=== PATIENT | male | born 1950 | race Caucasian/White ===

== ENCOUNTER → 2020-10-04 | Outpatient (CLI) | payer OTHER ==
--- NOTE | 2020-10-04 17:06 | MR ---
EXAMINATION TYPE: MR cervical spine wo con DATE OF EXAM: 10/04/2020 COMPARISON: None HISTORY: Numbness in hands TECHNIQUE: Multiplanar, multisequence images of the cervical spine were acquired. C2-C3: Minimal posterior disc bulge is present. No significant foraminal encroachment or spinal steno sis. C3-C4: Minimal posterior disc bulge is present. No significant spinal stenosis. Uncovertebral joint h ypertrophy is present causing some mild left-sided foraminal encroachment. C4-C5: No significant foraminal encroachment. No disc herniation. No spinal stenosis. C5-C6: Posterior extension endplate disc complex causes anterior mass effect on the thecal sac, mild spinal stenosis. Uncovertebral joint hypertrophy results in bilateral foraminal encroachment. C6-C7: Minimal posterior disc bulge is present. No significant spinal stenosis or foraminal encroachm ent C7-T1: No evidence for degenerative disc disease. No disc bulge/herniation or protrusion. No Canal stenosis. Foramina are patent bilaterally. Cervical segments are intact. There is normal alignment. Cervical spinal cord is of normal signal. Craniovertebral junction relationships are within normal limits. Cervical vertebral bodies show pre served height. Minimal anterolisthesis grade 1 C4-5, retrolisthesis grade 1 C5-C6. Loss of disc heigh t signal is greatest at C5-6. Cervical cord signal is maintained. IMPRESSION: Degenerative disc disease, multilevel foraminal encroachment as described.
--- NOTE | 2020-10-05 00:23 | MR ---
EXAMINATION TYPE: MR brachial plexus LT wo/w con DATE OF EXAM: 10/04/2020 COMPARISON: HISTORY: Numbness/tingling in arms and hands CONTRAST: Standard multiplanar, multisequence MRI departmental protocol utilizing 8.5 mL intravenous Gadavist g adolinium contrast. The cervical vertebra have overall fairly normal spacing and alignment for the patient's age. There i s no compression fracture. Cervical spinal cord has normal signal pattern without evidence of edema. The cervical neural foramina are fairly well-maintained. There is a C5-6 small posterior cervical dis c herniation. There is minimal anterior subluxation of C4 in relation to C5. There is no significant cervical spinal stenosis. Spinal canal measures at least 8 mm. There is no paraspinal mass. Specifica lly there is no evidence of left side brachial plexus mass. The contrast images show no pathologic en hancement. There is moderate arthritic change in the left shoulder joint with shoulder joint effusion. IMPRESSION: Mild spondylotic changes in the cervical spine with small posterior disc herniation at C5-6. No signi ficant spinal stenosis. No evidence of brachial plexus mass. 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
== END | disposition home or self-care (01) ==
LOC: RADMRIMAIN 14:17
PROVIDERS: ATTEND Family Medicine
DX: M19.012 Primary osteoarthritis, left shoulder (principal); M50.30 Other cervical disc degeneration, unspecified cervical region; R20.0 Anesthesia of skin
CPT/HCPCS: 72141; 71552; A9585

== ENCOUNTER → 2020-10-05 | Outpatient (CLI) | payer OTHER ==
--- NOTE | 2020-10-06 03:30 | MR ---
EXAMINATION TYPE: MR brachial plexus RT wo/w con DATE OF EXAM: 10/05/2020 COMPARISON: HISTORY: Weakness, numbness and tingling of BUE CONTRAST: Standard multiplanar, multisequence MRI departmental protocol utilizing 8.5 mL intravenous Gadavist g adolinium contrast. There is some narrowing of the disc spaces at C5-6 and C6-7. There is small posterior disc herniation at C5-6. Spinal canal measures 7 mm. Cervical spinal cord shows no evidence of edema. There is no evidence of a paraspinal mass. The right side brachial plexus shows no discrete mass. The re is 1.5 cm degenerative cyst in the greater tuberosity of the humerus. There is moderate spurring a t the AC joint. There is severe subacromial joint space narrowing and impingement. There is retractio n of the supraspinatus tendon. There is large degenerative cyst in the anterior glenoid of the scapul a. I see no evidence of cervical paraspinal mass. There are multiple rounded low signal areas around the right shoulder that could be calcium deposits. The contrast images show no pathologic enhancement . IMPRESSION: No demonstrated abnormality of the right side brachial plexus. Advanced arthritic disease in the right shoulder joint with large rotator cuff tear and obliteration of the subacromial joint space. Spondylotic mild changes in the cervical spine. There is a minimal 7 mm relative narrowing of the spi nal canal at C5-6. No evidence of cord edema.
== END ==
LOC: RADMRIMAIN 15:42
PROVIDERS: ATTEND Family Medicine
DX: M19.011 Primary osteoarthritis, right shoulder (principal); M75.101 Unspecified rotator cuff tear or rupture of right shoulder, not specified as traumatic
CPT/HCPCS: 71552; A9585

== ENCOUNTER → 2022-02-02 | Outpatient (CLI) | payer MEDICARE ==
--- NOTE | 2022-02-02 15:26 | NM ---
EXAMINATION TYPE: NM bone 3 phase DATE OF EXAM: 02/02/2022 COMPARISON: Plain films 01/26/2022 HISTORY: E08.622 Triple phase bone scintigraphy was performed following the injection of 24.8 mCi Tc 99m MDP. Immedia te images and 3.5 hours post injection images acquired. FINDINGS: Blood flow: There is increased radiotracer to the right ankle compared to the left of the blood flow images. Blood pool: Mild increased uptake is at the lateral malleolus and at the medial compartment joint spa ce. Static images: There is increased radiotracer accumulation at the medial aspect right ankle. Diffuse increased uptake is along the lateral right ankle. IMPRESSION: 1. Uptake at the right ankle on all 3 phases of bone scan. Some underlying osteomyelitis could be con sidered. Blood pool however appears more superficial suggesting cellulitis with underlying postsurgic al change within the fibula.
== END | disposition home or self-care (01) ==
LOC: RADNMMAIN 07:29
PROVIDERS: ATTEND Thoracic Surgery (Cardiothoracic Vascular Surgery)
DX: M86.9 Osteomyelitis, unspecified (principal); E08.622 Diabetes mellitus due to underlying condition with other skin ulcer; L98.499 Non-pressure chronic ulcer of skin of other sites with unspecified severity
CPT/HCPCS: 78315; A9503

== ENCOUNTER 2022-08-02 06:57 | Day surgery (SDC) | payer MEDICARE, OTHER ==
[~2022-08-02 06:57] MED LIST: LACTATED RINGERS 1,000 ML IV SCH
[2022-08-02 07:21] VITALS: TEMP 97.1
[2022-08-02 07:29] LABS: Glucose,Whole Blood 94 mg/dL (70-110)
[2022-08-02] MEDS ORDERED: LACTATED RINGERS 1,000 ML IV ONE (07:30)
[2022-08-02] MEDS ORDERED: LIDOCAINE 2% INJ 20 MG/ML (2 ML VIAL) ONE (08:05)
[2022-08-02] MEDS ORDERED: PROPOFOL 10 MG/ML 20 ML VIAL IV ONE (08:05)
--- NOTE | 2022-08-02 08:42 | P.PCN ---
Date of Procedure: 08/02/22 Procedure(s) Performed: Brief history: Patient is a pleasant 72-year-old white male scheduled for an elective upper endoscopy as well as colonoscopy as a part of evaluation of iron deficiency anemia. Procedure performed: Esophagogastroduodenoscopy with biopsy Colonoscopy with snare polypectomy Preoperative diagnosis: GERD/ Iron deficiency anemia and Anesthesia: MAC Procedure: After informed consent was obtained from the patient was brought into the endoscopy unit and IV sedation was administered by anesthesia under continuous monitoring. Initially upper endoscopy was done. The Olympus GF 160 video endoscope was inserted inserted into the mouth and esophagus intubated without any difficulty and was gradually advanced into the stomach and duodenum and carefully examined. The bulb part of the duodenum had a 1 cm flat duodenal polyp which was biopsied and second part of the duodenum appeared normal. The scope was then withdrawn into the stomach adequately insufflated with air and upon careful examination the antrum had mild gastritis and biopsies were done from this area. The body, cardia and fundus appeared normal. The scope was then withdrawn into the esophagus. The GE junction was located at 40 cm to the incisors. Small hiatal hernia noted. There was long segment of Vera's esophagus extending from 38-40 cm from the incisors and multiple biopsies were done from this area. . Rest of the esophagus appeared normal. Patient tolerated the procedure well. At this time the patient continued to remain sedation. Initial digital rectal examination was normal. Olympus CF 160 video colonoscope was then inserted into the rectum and gradually advanced to the cecum without any difficulty. Careful examination was performed as the scope was gradually being withdrawn. The prep was excellent. The cecum to 1.5 cm broad-based polyp removed by snare polypectomy. Rest of the, ascending colon, transverse colon, descending colon, sigmoid colon and rectum appeared normal. Retroflexion was performed in the rectum and no lesions were noted. Patient tolerated the procedure well. Impression: 1.Upper endoscopy revealed small hiatal hernia, long segment Vera's esophagus and duodenal polyp 2.Colonoscopy revealed 1.5 cm broad-based cecal polyp status post snare polypectomy Recommendations: Findings of this examination were discussed with the patient as well as his family. He was advised to follow with the biopsy results. If the biopsies confirm the presence of Vera's esophagus he can have a repeat upper endoscopy in 3 years. Recommend repeat colonoscopy in 3 years from now because of colon polyps.
[2022-08-02 09:07] VITALS: BP 159/64; PULSE 65; RESP 16
== END 2022-08-02 09:34 | disposition home or self-care (01) ==
LOC: ORWHC2ENDO 06:57
PROVIDERS: ATTEND Internal Medicine Gastroenterology
DX: D12.0 Benign neoplasm of cecum (principal); K31.7 Polyp of stomach and duodenum; K44.9 Diaphragmatic hernia without obstruction or gangrene; K31.89 Other diseases of stomach and duodenum; K31.A19 Gastric intestinal metaplasia without dysplasia, unspecified site; K29.70 Gastritis, unspecified, without bleeding; Z79.899 Other long term (current) drug therapy
CPT/HCPCS: 88305; 45385; 43239; J2704; J2001

== ENCOUNTER → 2023-02-08 | Outpatient (CLI) | payer MEDICARE ==
--- NOTE | 2023-02-09 12:09 | NM ---
EXAMINATION TYPE: NM DatScan Brain SPECT DATE OF EXAM: 02/08/2023 COMPARISON: NONE CLINICAL INDICATION: Male, 73 years old with history of G25.0; TECHNIQUE: 10 drops of Lugol's solution was administered 1 hour prior to injection as a thyroid bloc sangita agent. After the administration of 4.48 mCi I-123 Ioflupane DaTscan. Images obtained 3 hours p ost injection. SPECT images of the brain were acquired with axial and coronal reconstructions. FINDINGS: There is slight increase in background activity. In addition, there is weak comma-shaped appearance t o the bilateral corpus striata. IMPRESSION: Possible early changes reflecting Parkinson's disease or a Parkinsonian syndrome. Consider follow-up to assess for any progression.
== END | disposition home or self-care (01) ==
LOC: RADNMMAIN 10:50
PROVIDERS: ATTEND Psychiatry & Neurology Neurology
DX: G25.0 Essential tremor (principal)
CPT/HCPCS: 78803; A9584

== ENCOUNTER → 2023-06-23 | Outpatient (CLI) | payer MEDICARE ==
--- NOTE | 2023-06-23 13:35 | CT ---
EXAMINATION TYPE: CT brain wo con CT DLP: 1081.60 mGycm, Automated exposure control for dose reduction was used. DATE OF EXAM: 06/23/2023 1:06 PM COMPARISON: None. 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 Coronal and sagittal reformats reviewed. FINDINGS: Brain: Extra-axial spaces: Right frontal convexity subdural hematoma. Left cerebral convexity subdural hemat kamla. Both demonstrate hyperdense components. The right measures up to 6 mm in thickness. The left drake sures up to 1 cm thickness. Ventricular system: Right parietal approach MICROFILM PROCESSOR shunt catheter identified with distal tip terminating in the body of the left lateral ventricle. No hydrocephalus. No intraventricular hemorrhage identifie d. Cerebral parenchyma: Cerebral atrophy. No acute intraparenchymal hemorrhage. Encephalomalacia along t he MICROFILM PROCESSOR shunt course. The gilman-white junction is well differentiated. Scattered hypoattenuating areas a re seen within the white matter. Cerebellum: Unremarkable. Mass effect: No evidence of midline shift. Intracranial vasculature: Atherosclerotic calcifications of the intracranial vessels. Soft tissues: Normal. Calvarium/osseous structures: No depressed skull fracture. Postsurgical changes from right parietal a pproach MICROFILM PROCESSOR shunt catheter. Paranasal sinuses and mastoid air cells: Mild mucosal thickening along the medial aspect of the left maxillary wall. The remaining paranasal sinuses are clear. The mastoid air cells are clear. Visualized orbits: Bilateral aphakia. Bilateral scleral calcifications. IMPRESSION: 1. Acute/subacute bilateral subdural hematomas. No midline shift. 2. Right parietal approach MICROFILM PROCESSOR shunt catheter without hydrocephalus. Findings called to and discussed with Chantal Cabrales at 1:32 PM on 06/23/2023.
== END | disposition home or self-care (01) ==
LOC: RADCTMAIN 12:49
PROVIDERS: ATTEND Psychiatry & Neurology Neurology
DX: I62.00 Nontraumatic subdural hemorrhage, unspecified (principal); G91.2 (Idiopathic) normal pressure hydrocephalus; Z98.2 Presence of cerebrospinal fluid drainage device
CPT/HCPCS: 70450

== ENCOUNTER 2023-06-26 11:40 | Emergency (ER) | payer MEDICARE ==
--- NOTE | 2023-06-26 12:00 | ED ---
General Adult HPI - General Chief complaint: Recheck/Abnormal Lab/Rx Stated complaint: Brain Bleed Time Seen by Provider: 06/26/23 11:50 Source: patient Mode of arrival: ambulatory Limitations: no limitations - History of Present Illness Initial comments: Dictation was produced using [employer] dictation software. please excuse any grammatical, word or spelling errors. Chief Complaint: 73-year-old male presents to emergency department for abnormal outpatient CT History of Present Illness: 43-year-old male he was seen at neurologist office approximately one week ago. A routine computed tomography scan of the brain was ordered due to patient not having had a computed tomography scan of his brain in quite some time. He was at Dr. Dudley's office saw a mid-level provider loose. Getting his care. Patient's history of PARTITION NOTCHER shunt for hydrocephalus. That shunt was placed 2 years ago at [facility]. Patient has history of frequent falls. at the bedside states that he fell 10 days ago. Didn't think much of it. They saw the neurologist 1 week ago for routine visit which is when the computed tomography scan was ordered non-emergently or urgently. Scan was performed of last week. On Monday there was a voice message stating that patient should go to the ER for a brain bleed. He got the message today and decided to come to the ER today. Patient states that overall he is feeling better. States that he fell 10 days ago he is walking around the dark when he lost his footing and fell forward and struck the left forehead. The ROS documented in this emergency department record has been reviewed and confirmed by me. Those systems with pertinent positive or negative responses have been documented in the HPI. All other systems are other negative and/or noncontributory. - Related Data Home Medications Medication Instructions Recorded Confirmed ARIPiprazole [Abilify] 2.5 mg PO DAILY 07/29/22 08/02/22 DULoxetine HCL [Cymbalta] 60 mg PO DAILY 07/29/22 08/02/22 Ensure 1 can PO BID-W/MEALS 07/29/22 08/02/22 HYDROcodone/APAP 7.5-325MG [[place] 1 tab PO Q6HR PRN 07/29/22 08/02/22 7.5-325] Multi Vitamin With Fe 1 tab PO DAILY 07/29/22 08/02/22 Pantoprazole [Protonix] 40 mg PO DAILY 07/29/22 08/02/22 Sennosides [Senokot] 8.6 mg PO DAILY 07/29/22 08/02/22 buPROPion HCL [Wellbutrin SR] 200 mg PO BID 07/29/22 08/02/22 traZODone HCL 100 mg PO HS 07/29/22 08/02/22 Allergies Allergy/AdvReac Type Severity Reaction Status Date / Time No Known Allergies Allergy Verified 06/26/23 11:46 Review of Systems ROS Statement: Those systems with pertinent positive or pertinent negative responses have been documented in the HPI. ROS Other: All systems not noted in ROS Statement are negative. Past Medical History Past Medical History: GERD/Reflux Additional Past Medical History / Comment(s): arhtritis, open wound to rt ankle being tx at wound care. hgb dropped in the last 5 months received 1 prbc History of Any Multi-Drug Resistant Organisms: None Reported Additional Past Surgical History / Comment(s): colonoscopy, brainshunt put in for normal pressure hydrocephalus. Past Anesthesia/Blood Transfusion Reactions: No Reported Reaction Additional Past Anesthesia/Blood Transfusion Reaction / Comment(s): blood transfusions no reactions Past Psychological History: PTSD Smoking Status: Light tobacco smoker Past Alcohol Use History: Daily Past Drug Use History: None Reported - Past Family History Mother Family Medical History: Cancer Additional Family Medical History / Comment(s): colon cancer Father History Unknown: Yes General Exam - General Exam Comments Initial Comments: PHYSICAL EXAM: General Impression: Alert and oriented x3, not in acute distress HEENT: Normocephalic atraumatic, extra-ocular movements intact, pupils equal and reactive to light bilaterally, mucous membranes moist. Cardiovascular: Heart regular rate and rhythm Chest: Able to complete full sentences, no retractions, no tachypnea Abdomen: abdomen soft, non-tender, non-distended, no organomegaly Musculoskeletal: Pulses present and equal in all extremities, no peripheral edema Motor: no focal deficits noted Neurological: CN II-XII grossly intact, no focal motor or sensory deficits noted Skin: Intact with no visualized rashes Psych: Normal affect and mood Limitations: no limitations Course Vital Signs 06/26/23 06/26/23 11:44 11:51 Temperature 97.5 F L 98.3 F Pulse Rate 104 H 94 Respiratory 18 20 Rate Blood Pressure 134/71 144/72 O2 Sat by Pulse 97 98 Oximetry EKG Findings - EKG Comments: EKG Findings:: My EKG interpretation: Ventricular rate 91, sinus rhythm,. Interval to 26, QRS 106, QTC 433. No LA prolongation, no QTC prolongation, no ST or T-wave changes noted. No old EKG for comparison. Overall, this EKG is nonspecific Medical Decision Making - Medical Decision Making Was pt. sent in by a medical professional or institution (, PA, DIRECTOR FOOD AND BEVERAGE, urgent care, hospital, or long-term...) When possible be specific @ -No Did you speak to anyone other than the patient for history (EMS, parent, family, police, friend...)? What history was obtained from this source @ -No Did you review nursing and triage notes (agree or disagree)? Why? @ -I reviewed and agree with nursing and triage notes Were old charts reviewed (outside hosp., previous admission, EMS record, old EKG, old radiological studies, urgent care reports/EKG's, long-term records)? Report findings @ -Last week CT was reviewed showing bilateral subdural bleed Differential Diagnosis (chest pain, altered mental status, abdominal pain women, abdominal pain men, vaginal bleeding, musculoskeletal, weakness, fever, dyspnea, syncope, headache, dizziness, GI bleed, back pain, seizure, CVA, palpatations, mental health)? @ -Differential Headache: Migraine, tension, cluster, carbon monoxide, central venous thrombosis, pension karma temporal arteritis, acute closure glaucoma, intercranial hemorrhage, mastoiditis, sinusitis, head injury, this is not meant to be an all-inclusive list. EKG interpreted by me (3pts min.). @ -None done X-rays interpreted by me (1pt min.). @ -None done CT interpreted by me (1pt min.). @ -Computed tomography scan was ordered today showing redemonstration of bilateral subdural hematoma with no significant changes U/S interpreted by me (1pt. min.). @ -None done What testing was considered but not performed or refused? (CT, X-rays, U/S, labs)? Why? @ -None What meds were considered but not given or refused? Why? @ -None Did you discuss the management of the patient with other professionals (professionals i.e. , PA, [employer], lab, RT, psych nurse, social professionals, associate professor of geology, teacher, security flex officer, home health care case manager)? Give summary @ -case discussed with Dr. Oconnell, ear physician at [facility] were patient had his PARTITION NOTCHER shunt placed he is agreeable with urinary ER transfer Was smoking cessation discussed for >3mins.? @ -No Was critical care preformed (if so, how long)? @ -Yes, 33 minutes Were there social determinants of health that impacted care today? How? (Homelessness, low income, unemployed, alcoholism, drug addiction, transportation, low edu. Level, literacy, decrease access to med. care, long term, rehab)? @ -No Was there de-escalation of care discussed even if they declined (Discuss DNR or withdrawal of care, Hospice)? DNR status @ -No What co-morbidities impacted this encounter? (DM, HTN, Smoking, COPD, CAD, Canc er, CVA, ARF, Chemo, Hep., AIDS, mental health diagnosis, sleep apnea, morbid obesity)? @ -None Was patient admitted / discharged? Hospital course, mention meds given and route, prescriptions, significant lab abnormalities, going to OR and other pertinent info. @ -73-year-old male presents to the ER after having had a brain bleed seen on CT imaging from last week. This was seen on a routine CT brain tests ordered by neurologist. Vital signs stable. Physical examination is benign. Patient is well-appearing. Repeat computed tomography scan shows stable findings. we do not have neurosurgery at our facility. This is not urgent still needs to be evaluated by neurosurgery team. Patient is agreeable with plan. Patient will be transferred to [facility] Undiagnosed new problem with uncertain prognosis? @ -No Drug Therapy requiring intensive monitoring for toxicity (Heparin, Nitro, Insulin, Cardizem)? @ -No Were any procedures done? @ -No Diagnosis/symptom? Acute, or Chronic, or Acute on Chronic? Uncomplicated (without systemic symptoms) or Complicated (systemic symptoms)? @ -Subdural hematoma bilaterally Side effects of treatment? @ -No Exacerbation, Progression, or Severe Exacerbation? @ -No Poses a threat to life or bodily function? How? (Chest pain, [place], [place], pneumonia, PE, COPD, DKA, ARF, appy, cholecystitis, CVA, Diverticulitis, Homicidal, Suicidal, threat to staff... and all critical care pts) @ -yes - Lab Data Result diagrams: 06/26/23 11:56 06/26/23 11:56 Lab Results 06/26/23 06/26/23 Range/Units 11:56 11:56 WBC 6.2 (3.8-10.6) k/uL RBC 4.24 L (4.30-5.90) m/uL Hgb 13.1 (13.0-17.5) gm/dL Hct 40.2 (39.0-53.0) % MCV 94.8 (80.0-100.0) fL MCH 31.0 (25.0-35.0) pg MCHC 32.7 (31.0-37.0) g/dL RDW 12.3 (11.5-15.5) % Plt Count 207 (150-450) k/uL MPV 7.5 Neutrophils % 62 % Lymphocytes % 28 % Monocytes % 7 % Eosinophils % 2 % Basophils % 0 % Neutrophils # 3.8 (1.3-7.7) k/uL Lymphocytes # 1.7 (1.0-4.8) k/uL Monocytes # 0.4 (0-1.0) k/uL Eosinophils # 0.1 (0-0.7) k/uL Basophils # 0.0 (0-0.2) k/uL Sodium 139 (137-145) mmol/L Potassium 4.1 (3.5-5.1) mmol/L Chloride 104 (98-107) mmol/L Carbon Dioxide 23 (22-30) mmol/L Anion Gap 12 mmol/L BUN 16 (9-20) mg/dL Creatinine 0.69 (0.66-1.25) mg/dL Est GFR (CKD-EPI)AfAm >90 (>60 ml/min/1.73 sqM) Est GFR (CKD-EPI)NonAf >90 (>60 ml/min/1.73 sqM) Glucose 101 H (74-99) mg/dL Calcium 9.5 (8.4-10.2) mg/dL Disposition Clinical Impression: Subdural hemorrhage Disposition: OTHER INSTITUTION NOT DEFINED Condition: Fair Referrals: Lenny Barnes MD [Primary Care Provider] - 1-2 days Time of Disposition: 12:26 - Out of Hospital Transfer - Req. Specs Out of Hospital Transfer - Requested Specifics: Other Emergency Center ([facility]
[2023-06-26 12:05] VITALS: TEMP 98.3
[2023-06-26 12:10] LABS: Basophils % (A) 0 %; Eosinophils # (A) 0.1 k/uL (0-0.7); Eosinophils % (A) 2 %; HCT 40.2 % (39.0-53.0); HGB 13.1 gm/dL (13.0-17.5); Lymphocytes # (A) 1.7 k/uL (1.0-4.8); Lymphocytes % (A) 28 %; MCHC 32.7 g/dL (31.0-37.0); MCV 94.8 fL (80.0-100.0); Mean Platelet Volume 7.5; Monocytes # (A) 0.4 k/uL (0-1.0); Monocytes % (A) 7 %; Neutrophils # (A) 3.8 k/uL (1.3-7.7); Neutrophils % (A) 62 %; Platelet Count 207 k/uL (150-450); RBC 4.24 m/uL (4.30-5.90); RDW 12.3 % (11.5-15.5); WBC 6.2 k/uL (3.8-10.6)
[2023-06-26 12:23] LABS: African American GFR (CKD) >90 (>60 ml/min/1.73 sqM); Anion Gap 12 mmol/L; Blood Urea Nitrogen 16 mg/dL (9-20); Calcium 9.5 mg/dL (8.4-10.2); Carbon Dioxide 23 mmol/L (22-30); Chloride 104 mmol/L (98-107); Glucose 101 mg/dL (74-99); Non-African American GFR(CKD) >90 (>60 ml/min/1.73 sqM); Potassium 4.1 mmol/L (3.5-5.1); Sodium 139 mmol/L (137-145)
--- NOTE | 2023-06-26 12:26 | CT ---
EXAMINATION TYPE: CT brain cspine wo con CT DLP: 1347.5 mGycm, Automated exposure control for dose reduction was used. DATE OF EXAM: 06/26/2023 12:16 PM COMPARISON: CT brain 06/23/2023. CLINICAL INDICATION:Male, 73 years old with history of fall 10 days ago; recent falls. prior on pacs 06.23.23 TECHNIQUE: Brain: Multiple axial CT images of the brain were obtained without IV contrast. Cspine: Axial CT images from the skull base to the inferior aspect of T2 we obtained without intraven ous contrast. Coronal and sagittal reformatted images were also reviewed. FINDINGS: Brain: Extra-axial spaces: Right frontal convexity subdural hematoma. Left cerebral convexity subdural hemat kamla. Both demonstrate hyperdense components. The right measures up to 7 mm in thickness. The left drake sures up to 1.1 cm thickness. Ventricular system: Right parietal approach [employer] shunt catheter identified with distal tip terminating in the body of the left lateral ventricle. No hydrocephalus. No intraventricular hemorrhage identifie d. Cerebral parenchyma: Cerebral atrophy. No acute intraparenchymal hemorrhage. Encephalomalacia along t he [employer] shunt course. The gilman-white junction is well differentiated. Scattered hypoattenuating areas a re seen within the white matter. Cerebellum: Unremarkable. Mass effect: No evidence of midline shift. Intracranial vasculature: Atherosclerotic calcifications of the intracranial vessels. Soft tissues: Normal. Calvarium/osseous structures: No depressed skull fracture. Postsurgical changes from right parietal a pproach [employer] shunt catheter. Paranasal sinuses and mastoid air cells: Mild mucosal thickening along the medial aspect of the left maxillary wall. The remaining paranasal sinuses are clear. The mastoid air cells are clear. Visualized orbits: Bilateral aphakia. Bilateral scleral calcifications. Cervical spine: Fracture: None. Osseous structures: Multilevel degenerative disc disease changes with endplate spurring and disc oste ophyte complex's. Multilevel facet arthropathy. Vertebral alignment: Degenerative grade 1 anterolisthesis of C2 on C3, C3 on C4 and C4 on C5. Mild re trolisthesis of C5 on C6. Spinal canal/Neural Foramina: Disc osteophyte complexes at C5-C6 with at least mild spinal canal sten osis. Facet joint uncovertebral joint arthropathy scattered throughout the cervical spine with varyin g degrees of neural foraminal stenosis. Ankylosis of the right C4-C5 facet joint. Neck soft tissues: Prevertebral soft tissues are within normal limits. [employer] shunt catheter along the ri ght lateral neck. Other: The airway is patent. Biapical pleural-parenchymal scarring. Bilateral carotid bulb calcificat ions. IMPRESSION: 1. No significant change in subacute bilateral subdural hematomas from CT 06/23/2023. No midline shif t. 2. Right parietal approach [employer] shunt catheter without hydrocephalus. 3. No evidence of cervical spine fracture. 4. Mild multilevel degenerative disc disease. 5. Degenerative grade 1 anterolisthesis of C2 on C3, C3 on C4 and C4 on C5. Mild retrolisthesis of C5 on C6.
[2023-06-26 12:36] LABS: Partial Thromboplastin Time 22.7 sec (22.0-30.0); Prothrombin Time 10.3 sec (9.0-12.0)
[2023-06-26 14:12] VITALS: BP 136/86; PULSE 86; RESP 16
== END 2023-06-26 14:07 | disposition other institution (70) ==
LOC: EC 11:40
DX: S06.5X0A Traumatic subdural hemorrhage without loss of consciousness, initial encounter (principal); M43.12 Spondylolisthesis, cervical region; K21.9 Gastro-esophageal reflux disease without esophagitis; F17.200 Nicotine dependence, unspecified, uncomplicated; Z79.899 Other long term (current) drug therapy; X58.XXXA Exposure to other specified factors, initial encounter
CPT/HCPCS: 36415; 70450; 72125; 80048; 85025; 85610; 85730; 93005; 99291

== ENCOUNTER → 2024-01-02 | Outpatient (CLI) | payer MEDICARE ==
--- NOTE | 2024-01-02 10:42 | CT ---
EXAMINATION TYPE: CT brain wo con CT DLP: 1260 mGycm, Automated exposure control for dose reduction was used. DATE OF EXAM: 01/02/2024 9:31 AM COMPARISON: 06/26/2023. CLINICAL INDICATION:Male, 73 years old with history of S06.5XAA SUBDURAL HEMATOMA R51.9 HEADACHE, hx subdural hematoma, headache TECHNIQUE: Brain: Axial CT images of the brain were obtained with coronal and sagittal reformats created and rev iewed. Contrast used: None. Oral contrast used: None. FINDINGS: Brain: Extra-axial spaces: No abnormal extra-axial fluid collections. Low density subdural fluid collections are seen bilaterally measuring up to 8 mm on the left and 5 mm on the right. Ventricular system: Ventriculostomy tubing tip terminating near midline in the left lateral ventricle . Tubing appears intact. No evidence of hydrocephalus Cerebral parenchyma: Cerebral atrophy. No acute intraparenchymal hemorrhage or mass effect. The gilman -white junction is well differentiated. Scattered hypoattenuating areas are seen within the white mat ter. Cerebellum: Unremarkable. Mass effect: No evidence of midline shift. Intracranial vasculature: Atherosclerotic calcifications of the intracranial vessels. Soft tissues: Normal. Calvarium/osseous structures: No depressed skull fracture. Paranasal sinuses and mastoid air cells: Mild scattered paranasal sinus disease. Visualized orbits: Orbital contents are intact. IMPRESSION: 1. Chronic bilateral subdural hemorrhages no evidence for new acute bleed. 2. Right posterior ventriculostomy catheter with tip in stable position. No evidence for hydrocephal us.
== END | disposition home or self-care (01) ==
LOC: RADCTMAIN 09:06
PROVIDERS: ATTEND Psychiatry & Neurology Neurology
DX: I62.03 Nontraumatic chronic subdural hemorrhage (principal); Z98.2 Presence of cerebrospinal fluid drainage device
CPT/HCPCS: 70450

== ENCOUNTER 2024-05-08 08:00 | Day surgery (SDC) | payer MEDICARE, OTHER ==
[2024-05-08] MEDS ORDERED: LIDOCAINE 2% (PF) 20 MG/ML 5 ML VIAL ONE (09:09)
[2024-05-08] MEDS ORDERED: LIDOCAINE 1% INJ 10MG/ML (20 ML MDV) ONE (09:09)
[2024-05-08] MEDS ORDERED: GLYCOPYRROLATE 0.2 MG/ML 2 ML VIAL ONE (09:09)
[2024-05-08] MEDS ORDERED: PROPOFOL 10 MG/ML 20 ML VIAL IV ONE (09:09)
[2024-05-08] MEDS ORDERED: LACTATED RINGERS 1,000 ML BAG ONE (09:09)
--- NOTE | 2024-06-13 14:55 | OP ---
OPERATIVE REPORT DATE OF SERVICE : 05/08/2024 REQUESTING PHYSICIAN: Dr. Migdalia Jauregui HISTORY OF PRESENT ILLNESS: The patient is a 74-year-old pleasant white male scheduled for an upper endoscopy as well as colonoscopy as a part of evaluation of iron deficiency anemia. He also has history of GERD and Vera's esophagus. PROCEDURE PERFORMED: 1. Esophagogastroduodenoscopy with biopsy and cautery, IV sedation. 2. Colonoscopy with snare polypectomy. PREOPERATIVE DIAGNOSES: Iron deficiency anemia, history of Vera's esophagus and GERD. ANESTHESIA: IV sedation per Anesthesia. DESCRIPTION OF PROCEDURE: After informed consent was obtained from the patient, he was brought into the endoscopy unit. IV conscious sedation was administered by Anesthesia under continuous monitoring. Initially, upper endoscopy was done. The Olympus GF-180 video endoscope was inserted through the mouth. Esophagus intubated without any difficulty and was gradually advanced into the stomach and duodenum. I careful examined bulb and the second part of the duodenum appeared normal. Biopsies were done from the duodenum to evaluate for celiac disease. Scope was then withdrawn to the stomach, adequately insufflated with air. The mucosa, antrum, body and fundus appeared normal. In the cardia of the stomach, there was a 5 mm nonbleeding arteriovenous malformation that was cauterized using a gold probe. The scope was then withdrawn to the esophagus. The GE junction was located at 44 cm from the incisors. A small hiatal hernia noted. There was a long segment of Vera's esophagus extending from 40 to 44 cm from the incisors and multiple biopsies were done from this area. Rest of the esophagus appeared normal and the patient tolerated the procedure well. He continued to remain sedated. Initially, colonoscopy was done. Digital rectal examination was normal. The Olympus CF-190 video colonoscopy was then inserted into the rectum and gradually advance to the cecum. Careful examination was performed as the scope was gradually being withdrawn. The ileocecal valve and appendical orifice was visualized and appeared to be normal. The prep was excellent. The cecum, ascending colon, transverse colon, descending colon, sigmoid colon and rectum appeared normal. In the transverse colon, there was a 3 mm and 1 cm polyp removed by snare polypectomy. Retroflexion was performed in the rectum. No lesions were noted and the patient tolerated the procedure well. IMPRESSION: 1. 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 2. Small hiatal hernia. 3. Long segment Vera's esophagus extending from 40 to 44 cm from the incisors, status post multiple biopsies. 4. Colonoscopy revealed 5 mm and 1 cm transverse colon polyp, status post snare polypectomy and rest of the colon appeared normal. RECOMMENDATIONS: Findings of this examination were discussed with the patient as well as his family. He was advised to follow up with the biopsy results. If the biopsies reveal Vera's esophagus, recommend a repeat upper endoscopy in 3 years and repeat colonoscopy in 5 years. MMODL / IJN: [id number] /
== END 2024-05-08 10:25 ==
LOC: ORWHC2ENDO 08:00
PROVIDERS: ATTEND Internal Medicine Gastroenterology
DX: D12.3 Benign neoplasm of transverse colon (principal); K22.70 Barrett's esophagus without dysplasia; K21.9 Gastro-esophageal reflux disease without esophagitis; K44.9 Diaphragmatic hernia without obstruction or gangrene; D50.9 Iron deficiency anemia, unspecified; K55.20 Angiodysplasia of colon without hemorrhage; I10 Essential (primary) hypertension; E78.5 Hyperlipidemia, unspecified; G30.9 Alzheimer's disease, unspecified; G20.A1 Parkinson's disease without dyskinesia, without mention of fluctuations; F17.210 Nicotine dependence, cigarettes, uncomplicated; Z79.899 Other long term (current) drug therapy
CPT/HCPCS: 43239; 45385; 88305